=== PATIENT | female | born 1955 | race Caucasian/White ===

== ENCOUNTER 2022-09-09 11:05 | Emergency (ER) | payer MEDICARE, OTHER, SELFPAY ==
[2022-09-09 11:37] VITALS: BP 157/71; PULSE 61; RESP 18; TEMP 36.8; O2SAT 96
--- NOTE | 2022-09-09 13:21 | W.ED.GENAD ---
Discharge Plan Disposition Patient Disposition: Home Discharge Details Clinical Impression: Herpes zoster Primary Care Provider: Merle Sanchez ED Provider: Carlos Medina Home Meds and New Rx's Prescriptions: New valacyclovir 1 gram tablet 1,000 mg PO TID 7 Days Qty: 21 0RF prednisone 20 mg tablet 20 mg PO DAILY 5 Days Qty: 5 0RF Discharge Instructions Instructions: Shingles (ED) Additional Instructions: Feel free to return to the emergency department for any new or significant worsening of symptoms. Otherwise take medication as prescribed stay well-hydrated and get plenty of rest. Beyond [id number] oral pain medication you may use topical lidocaine [id number] and apply to area of rash. Follow-up with primary care provider if not improving or as needed for reassessment Referrals: Merle Sanchez [Primary Care Provider] - 5 days (If not improving or as needed for reassessment) Discharge Data Discharge Date/Time-TO BE ENTERED AT DEPARTURE: 09/09/22 13:38 Medical Decision Making Patient presenting to the emergency department for chief complaint of painful rash. Patient states 3 days ago she started having pain and discomfort which initially she thought she pulled a muscle then over the past 24 hours she has started developing a rash in the same area of pain and discomfort. Patient denies any injury or trauma, other areas of rash, or other systemic symptoms. Physical exam is consistent with shingles. Given that patient has developed a rash within 24 hours I do feel that antivirals and steroids will be beneficial. We will start these immediately and have patient monitor symptoms return for new or worsening condition. After discussion of diagnosis and plan of care patient has no further needs, questions, or concerns and states clear understanding to return to the emergency department for any worsening symptoms. This documentation was generated using [employer] system, please disregard any oddities of phrase or misspellings. HPI General Mode of arrival: ambulatory. Date/Time Provider Initiated Documentation: 09/09/22 12:11. Limitations to Documentation: no limitations. Information obtained by: patient, family and RN notes reviewed. History of Present Illness 66 year old F presents to the emergency department with the chief complaint of Painful rash, described as moderate, Quality is described as aching and sharp, and is localized to the chest. Patient started experiencing this day(s) (3) and it has been constant. No relieving factors improve symptom(s), No exacerbating factors reported . Patient notes no other symptoms.. Patient did receive the following treatments prior to arrival, none Related Data Home Medications Medication Instructions Recorded Confirmed prednisone 20 mg tablet 20 mg PO DAILY 5 days #5 tabs 09/09/22 valacyclovir 1 gram tablet 1,000 mg PO TID 7 days #21 tabs 09/09/22 Previous Rx's Medication Instructions Recorded prednisone 20 mg tablet 20 mg PO DAILY 5 days #5 tabs 09/09/22 valacyclovir 1 gram tablet 1,000 mg PO TID 7 days #21 tabs 09/09/22 Allergies Allergy/AdvReac Type Severity Reaction Status Date / Time diclofenac [From Voltaren] Allergy Unverified 09/09/22 11:48 Penicillins Allergy Unverified 09/09/22 11:47 Sulfa (Sulfonamide Allergy Unverified 09/09/22 11:48 Antibiotics) General Stated Complaint: RashLesion KARINA: 4 Review of Systems Constitutional Constitutional: Denies chills, Denies fever(s) and Reports malaise ENT Ears, Nose, Mouth, and Throat: Denies sore throat Cardiovascular Cardiovascular: Denies chest pain and Denies dyspnea Respiratory Respiratory: Denies cough and Denies dyspnea Gastrointestinal Gastrointestinal: Denies abdominal pain Musculoskeletal Musculoskeletal: Denies back pain Integumentary/Breasts Skin/Breast: Reports as per HPI and Reports rash PFSH All Active Problems (Updated 09/09/22 @ 13:26 by Carlos Medina NP) Herpes zoster (Acute) Social History Smoking risk assessment performed?: No Exam Const General: cooperative, no acute distress and not ill appearing Orientation: alert, awake and oriented x3 HENMT Mouth: moist mucous membranes Resp Effort & Inspection: normal respiratory effort, able to speak in complete sentences and no respiratory distress Auscultation: clear to auscultation bilaterally Cardio Rate: regular rate Rhythm: regular rhythm Heart Sounds: S1 normal and S2 normal Skin Rashes: rashes noted vesicles right distribution (Dermatomal pattern) Neuro General: patient alert, patient awake, patient oriented x3, moves all extremities and no focal motor deficits Sensory Exam: no sensory deficits noted Course Vital Signs Vital signs: Vital Signs Temperature 36.8 C 09/09/22 11:37 Pulse 61 09/09/22 11:37 Respiratory Rate 18 09/09/22 11:37 Blood Pressure 157/71 H 09/09/22 11:37 Pulse Oximetry 96 09/09/22 11:37 Temperature 36.8 C 09/09/22 11:37 Pulse 61 09/09/22 11:37 Respiratory Rate 18 09/09/22 11:37 Blood Pressure 157/71 H 09/09/22 11:37 Pulse Oximetry 96 09/09/22 11:37 Oxygen Delivery Method Room Air 09/09/22 11:37 Oxygen Flow Rate 0 09/09/22 11:37 Pain Level 6 09/09/22 11:37
== END 2022-09-09 13:38 | disposition home or self-care (01) ==
PROVIDERS: Emergency Provider Nurse Practitioner Family; PCP Family Medicine
DX: B02.9 Zoster without complications (principal)
CPT/HCPCS: 99283; 99284